=== PATIENT | female | born 1995 | race African-American/Black ===

== ENCOUNTER 2019-02-21 10:50 | Emergency (ER) | payer SELFPAY ==
[~2019-02-21] VITALS: Ht 157.5 cm; Wt 79.5 kg
[2019-02-21] MEDS ORDERED: DEXAMETHASONE SOD PHOS 4 MG/ML VIAL PO ONE (13:00)
[2019-02-21] MEDS ORDERED: KETOROLAC TROMETHAMINE 30 MG/ML VIAL IM ONE (13:00)
[2019-02-21 13:46] VITALS: BP 123/79
== END 2019-02-21 14:38 | disposition home or self-care (01) ==
LOC: EMS 10:51
DX: S93.402A Sprain of unspecified ligament of left ankle, initial encounter (principal); J03.90 Acute tonsillitis, unspecified; R03.0 Elevated blood-pressure reading, without diagnosis of hypertension; Z88.0 Allergy status to penicillin; Z88.8 Allergy status to other drugs, medicaments and biological substances; Z91.030 Bee allergy status; Z91.018 Allergy to other foods; X58.XXXA Exposure to other specified factors, initial encounter; Y93.89 Activity, other specified; Y92.89 Other specified places as the place of occurrence of the external cause; Y99.8 Other external cause status
CPT/HCPCS: 73610; 81025; 96372; 99283; J1100; J1885